=== PATIENT | female | born 1990 | race Caucasian/White ===

== ENCOUNTER 2016-12-26 15:59 | Emergency (ER) | payer OTHER ==
[~2016-12-26] VITALS: Ht 172.7 cm; Wt 61.2 kg
[2016-12-26 16:01] VITALS: BP 134/55; PULSE 91; RESP 16; TEMP 97.6; O2SAT 97
--- NOTE | 2016-12-26 16:09 | NUR ---
Patient to ER bed 6 to gown for evaluation. Side rails up. Report given to KARMEN REHMAN.
--- NOTE | 2016-12-26 16:15 | NUR ---
Hallie SQL DBA at bedside
--- NOTE | 2016-12-26 16:20 | NUR ---
Pt presents to ED multiple complaints. Sore throat reported as most painful.
[2016-12-26] MEDS ORDERED: CLINDAMYCIN HCL 150 MG CAPSULE PO ONE (16:45)
[2016-12-26] MEDS ORDERED: KETOROLAC TROMETHAMINE 60 MG/2 ML VIAL IM ONE (16:45)
--- NOTE | 2016-12-26 16:55 | NUR ---
Pt tolerated medication well.
[2016-12-26 17:30] VITALS: BP 130/58; PULSE 88; RESP 16; TEMP 98; O2SAT 97
--- NOTE | 2016-12-26 17:30 | NUR ---
Patient given written and verbal discharge instructions and verbalizes understanding. ER MD discussed with patient the results and treatment provided. Given copies of tests performed in ER. Patient in stable condition. ID arm band removed. I Rx of Clindamycin and Motrin given. Patient educated on pain management and to follow up with PMD. Pain Scale 2. Opportunity for questions provided and answered.
== END 2016-12-26 17:30 | disposition home or self-care (01) ==
LOC: SED 15:59
DX: J02.0 Streptococcal pharyngitis (principal); Z88.0 Allergy status to penicillin
CPT/HCPCS: 81025; 96372; 99283; J1885

== ENCOUNTER 2017-03-31 21:09 | Emergency (ER) | payer OTHER ==
[~2017-03-31] VITALS: Ht 172.7 cm; Wt 61.2 kg
[2017-03-31 21:10] VITALS: BP_SYST 124
--- NOTE | 2017-03-31 21:10 | NUR ---
PT TO WAITING ROOM AWAITING AVAILABLE BED . STABLE.
[2017-03-31 22:27] LABS: BILIRUBIN,URINE NEGATIVE (NEGATIVE); BLOOD, URINE NEGATIVE (NEGATIVE); COLOR,URINE YELLOW (YELLOW); GLUCOSE,URINE NEGATIVE (NEGATIVE); KETONES,URINE NEGATIVE (NEGATIVE); LEUKOCYTE ESTERASE ,URINE NEGATIVE (NEGATIVE); NITRITE, URINE NEGATIVE (NEGATIVE); PROTEIN URINE NEGATIVE (NEGATIVE); UROBILINOGEN,URINE 0.2 (0.2-1.0)
[2017-03-31 22:29] LABS: CLARITY/URINE HAZY (CLEAR)
--- NOTE | 2017-03-31 22:45 | NUR ---
Patient AAO x 4, sitting in bed, family at bedside, c/o mirgraine DA SILVA 06/07 X 1 WEEK. Patient states pain is unrelieved by medication at home. States she has minor nausea and dizziness with photophobia. No acute distress noted. Will continue to monitor.
--- NOTE | 2017-03-31 22:45 | NUR ---
Patient to ER bed 5 to gown for evaluation. Side rails up. Report given to LAURIE REHMAN.
--- NOTE | 2017-03-31 23:00 | NUR ---
ER at bedside examining patient.
[2017-03-31] MEDS ORDERED: SUMAtriptan SUCCINATE 6 MG/0.5 ML VIAL SUBCUT ONE (23:15)
[2017-03-31] MEDS ORDERED: ONDANSETRON 4 MG ODT TAB PO ONE (23:30)
[2017-03-31 23:37] VITALS: BP_SYST 122
--- NOTE | 2017-03-31 23:37 | NUR ---
dPatient given written and verbal discharge instructions and verbalizes understanding. ER MD discussed with patient the results and treatment provided. Patient in stable condition. ID arm band removed. Rx of prednisone, zithromax, and cafergotgiven. Patient educated on pain management and to follow up with PMD. Pain Scale 0/10 . Opportunity for questions provided and answered.
== END 2017-03-31 23:37 | disposition home or self-care (01) ==
LOC: SED 21:09
DX: G43.909 Migraine, unspecified, not intractable, without status migrainosus (principal); Z88.0 Allergy status to penicillin; Z88.1 Allergy status to other antibiotic agents
CPT/HCPCS: 81003; 81025; 96372; 99283; J3030; Q0162

== ENCOUNTER 2021-07-05 09:19 | Emergency (ER) | payer OTHER, MEDICAID ==
[~2021-07-05] VITALS: Ht 172.7 cm; Wt 68.0 kg
--- NOTE | 2021-07-05 09:20 | NUR ---
Pt. place in bed 2 by Antonio/EMS, assumed care
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
--- NOTE | 2021-07-05 09:25 | NUR ---
ER at bedside examining patient.
[2021-07-05 09:31] VITALS: BP_SYST 131
[2021-07-05] MEDS ORDERED: IBUP-1969 PO (09:36)
--- NOTE | 2021-07-05 10:00 | NUR ---
chest xray at bedside
--- NOTE | 2021-07-05 10:25 | NUR ---
Patient given written and verbal discharge instructions and verbalizes understanding. ER Dr. Bear discussed with patient the results and treatment provided. Patient in stable condition. ID arm band removed. Rx of Mortin given. Patient educated on pain management and to follow up with PMD. Pain Scale 3. Opportunity for questions provided and answered. Medication side effect fact sheet provided.
[2021-07-05 10:27] VITALS: BP_SYST 120
== END 2021-07-05 10:25 | disposition home or self-care (01) ==
LOC: SED 09:19
DX: S20.219A Contusion of unspecified front wall of thorax, initial encounter (principal); Z88.0 Allergy status to penicillin; Z88.1 Allergy status to other antibiotic agents; Z79.899 Other long term (current) drug therapy; V49.49XA Driver injured in collision with other motor vehicles in traffic accident, initial encounter; Y93.89 Activity, other specified; Y92.89 Other specified places as the place of occurrence of the external cause; Y99.8 Other external cause status
CPT/HCPCS: 71045; 81025; 93005; 99283